=== PATIENT | male | born 1975 | race Hispanic/Latino ===

== ENCOUNTER → 2021-01-24 | Outpatient (CLI) | payer BC ==
[~2021-01-24] VITALS: Ht 172.7 cm; Wt 90.7 kg
[~2021-01-24] MED LIST: ACET1TAB25 PO; ASPI-1005 PO; ATOR40TA71 PO; CLOP75TA14 PO; LISI2.5T2 PO; METO-391 PO; REGADENOSON 0.4 MG/5 ML PF SYG IVP SCH
== END | disposition home or self-care (01) ==
LOC: SHCH 07:58
PROVIDERS: ATTEND Internal Medicine Cardiovascular Disease
DX: I25.10 Atherosclerotic heart disease of native coronary artery without angina pectoris (principal); R06.09 Other forms of dyspnea; R10.9 Unspecified abdominal pain; R07.89 Other chest pain; R68.2 Dry mouth, unspecified
CPT/HCPCS: 78452; 93017; 96374; A9500 ×2; J2785

== ENCOUNTER 2021-05-20 13:58 | Observation (INO) | payer BC ==
[~2021-05-20] VITALS: Ht 172.7 cm; Wt 83.5 kg
[~2021-05-20 13:58] MED LIST changes: +LISI2.5T13 PO; -LISI2.5T2 PO; -REGADENOSON 0.4 MG/5 ML PF SYG IVP SCH
[2021-05-20] MEDS ORDERED: NITROGLYCERIN 0.4 MG SL TAB SL ONE (14:01)
[2021-05-20 15:42] LABS: BASOPHILS % (AUTO) 0.6 % (0.0-5.0); EOSINOPHILS % (AUTO) 0.9 % (0.0-8.0); HEMATOCRIT 43.1 % (42-54); LYMPHOCYTES % (AUTO) 13.7 % (21.0-51.0); MEAN CORPUSCULAR HGB CONC 34.1 g/dL (32.0-36.0); MONOCYTES % (AUTO) 4.9 % (3.0-13.0); NEUTROPHILS % (AUTO) 79.4 % (40.0-77.0); PLATELET COUNT (AUTO) 213 K/uL (130-400); WHITE BLOOD COUNT (AUTO) 10.7 K/uL (4.8-10.8)
[2021-05-20 15:55] LABS: POTASSIUM 3.3 mmol/L (3.5-5.1)
[2021-05-20 16:06] LABS: ALBUMIN 4.4 g/dL (3.5-5.0); TOTAL PROTEIN, SERUM 7.7 g/dL (6.0-8.3)
[2021-05-20 16:37] LABS: APPEARANCE,URINE Clear (CLEAR); BILIRUBIN,URINE Negative (NEGATIVE); COLOR,URINE Yellow (YELLOW); GLUCOSE, URINE (UA) Negative (NEGATIVE); KETONES,URINE Negative (NEGATIVE); LEUKOCYTE ESTERASE ,URINE Negative (NEGATIVE); NITRATE,URINE Negative (NEGATIVE); OCCULT BLOOD,URINE Negative (NEGATIVE); PROTEIN,URINE Negative (NEGATIVE)
[2021-05-20] MEDS ORDERED: LACTULOSE 20 GM/30 ML UDCUP PO PRN (17:00)
[2021-05-20] MEDS ORDERED: CLOPIDOGREL 75MG TAB PO SCH (17:00)
[2021-05-20] MEDS ORDERED: KCL 20 MEQ ERTAB PO ONE ×3 (17:00→19:12)
[2021-05-20] MEDS ORDERED: ACETAMINOPHEN 325 MG TAB PO PRN (17:00)
[2021-05-20] MEDS ORDERED: ONDANSETRON 4MG INJ IV PRN (17:00)
[2021-05-20 17:41] LABS: HEMOGLOBIN A1C 5.8 % (4.0-6.0)
[2021-05-20 18:41] LABS: THYROID STIMULATING HORMONE 0.89 uIU/mL (0.36-3.74)
[2021-05-20] MEDS: NITROGLYCERIN 1GM OINT 1 INCH/1GM TD SCH (19:10)
[2021-05-20 19:25] LABS: AMPHET/METH SCREEN,URINE NEGATIVE (NEGATIVE); BARBITURATE SCREEN, URINE NEGATIVE (NEGATIVE); BENZODIAZEPINES SCREEN,URINE NEGATIVE (NEGATIVE); CANNABINOID SCREEN,URINE NEGATIVE (NEGATIVE); COCAINE SCREEN,URINE NEGATIVE (NEGATIVE); OPIATE SCREEN,URINE NEGATIVE (NEGATIVE); PHENCYCLIDINE SCREEN,URINE NEGATIVE (NEGATIVE)
[2021-05-20 20:40] VITALS: BP 132/82
[2021-05-20] MEDS ORDERED: LOSA25TA41 PO (21:32)
[2021-05-20] MEDS: METOPROLOL TARTRATE 25 MG TAB PO SCH (21:46)
[2021-05-20] MEDS: ATORVASTATIN 40 MG TABLET PO SCH (21:46)
[2021-05-20] MEDS: FAMOTIDINE 20MG TAB PO SCH (21:46)
[2021-05-20 23:25] VITALS: BP 107/59
[2021-05-21] MEDS: NITROGLYCERIN 1GM OINT 1 INCH/1GM TD SCH ×3 (02:17→17:29)
[2021-05-21 04:25] VITALS: BP 108/60
[2021-05-21] MEDS: METOPROLOL TARTRATE 25 MG TAB PO SCH ×2 (07:51→20:59)
[2021-05-21 07:52] VITALS: BP 99/64
[2021-05-21] MEDS: ACETAMINOPHEN 325 MG TAB PO PRN (08:39)
[2021-05-21] MEDS: ASPIRIN 81MG CHEW TAB PO SCH (08:40)
[2021-05-21] MEDS: CLOPIDOGREL 75MG TAB PO SCH (08:40)
[2021-05-21] MEDS: ENOXAPARIN SODIUM 40 MG/0.4 ML SYRINGE SQ SCH (08:40)
[2021-05-21] MEDS: FAMOTIDINE 20MG TAB PO SCH ×2 (08:40→20:59)
[2021-05-21 09:53] LABS: CREATININE 1.1 mg/dL (0.5-1.5); MAGNESIUM 2.2 mg/dL (1.80-2.40); POTASSIUM 4.5 mmol/L (3.5-5.1)
[2021-05-21 11:34] VITALS: BP 106/64
[2021-05-21 16:00] VITALS: BP 106/65
[2021-05-21 20:47] VITALS: BP 120/66
[2021-05-21] MEDS: ATORVASTATIN 40 MG TABLET PO SCH (20:59)
[2021-05-22] MEDS: ACETAMINOPHEN 325 MG TAB PO PRN (00:21)
[2021-05-22] MEDS: NITROGLYCERIN 1GM OINT 1 INCH/1GM TD SCH ×3 (00:25→14:24)
[2021-05-22 00:49] VITALS: BP 107/68
[2021-05-22 04:51] VITALS: BP 109/67
[2021-05-22 07:30] VITALS: BP 110/65
[2021-05-22] MEDS: ASPIRIN 81MG CHEW TAB PO SCH (09:02)
[2021-05-22] MEDS: FAMOTIDINE 20MG TAB PO SCH (09:03)
[2021-05-22] MEDS: METOPROLOL TARTRATE 25 MG TAB PO SCH (09:03)
[2021-05-22] MEDS: CLOPIDOGREL 75MG TAB PO SCH (09:03)
[2021-05-22] MEDS: ENOXAPARIN SODIUM 40 MG/0.4 ML SYRINGE SQ SCH (09:04)
[2021-05-22 11:18] VITALS: BP 117/72
[2021-05-22 15:40] VITALS: BP 116/74
== END 2021-05-22 18:30 | disposition home or self-care (01) ==
LOC: EDH 13:58 → EDHIP 16:44 → 4CH 20:36
PROVIDERS: ADMIT Internal Medicine; ATTEND Internal Medicine
DX: R07.89 Other chest pain (principal); E87.6 Hypokalemia; I25.10 Atherosclerotic heart disease of native coronary artery without angina pectoris; I21.19 ST elevation (STEMI) myocardial infarction involving other coronary artery of inferior wall; I50.42 Chronic combined systolic (congestive) and diastolic (congestive) heart failure; E78.5 Hyperlipidemia, unspecified; H53.9 Unspecified visual disturbance; R00.2 Palpitations; F41.9 Anxiety disorder, unspecified; I49.3 Ventricular premature depolarization; I25.2 Old myocardial infarction; I49.01 Ventricular fibrillation; M62.82 Rhabdomyolysis; Z79.82 Long term (current) use of aspirin; Z79.899 Other long term (current) drug therapy; Z79.02 Long term (current) use of antithrombotics/antiplatelets; Z85.72 Personal history of non-Hodgkin lymphomas; Z95.5 Presence of coronary angioplasty implant and graft
CPT/HCPCS: 36415 ×2; 70450; 71045; 80048; 80053; 80305; 81003; 82550 ×4; 82948; 83036; 83735 ×2; 83874 ×4; 83880; 84443; 84484 ×4; 85025; 85378; 93005 ×4; 93306; 93356; 93880; 96372 ×2; 99283; G0378 ×47; J1650 ×2

== ENCOUNTER 2022-05-18 09:20 | Emergency (ER) | payer BC ==
[~2022-05-18] VITALS: Ht 172.7 cm; Wt 90.7 kg
[~2022-05-18 09:20] MED LIST changes: +ACET-2079 PO; -ACET1TAB25 PO; -LISI2.5T13 PO; +LOSA25TA41 PO
[2022-05-18] MEDS ORDERED: ASPIRIN 325MG TAB PO ONE (09:30)
[2022-05-18 09:34] LABS: BASOPHILS % (AUTO) 0.6 % (0.0-5.0); HEMATOCRIT 43.2 % (42-54); LYMPHOCYTES % (AUTO) 41.8 % (21.0-51.0); MEAN CORPUSCULAR HEMOGLOBIN 29.9 pg (27.0-33.0); MEAN CORPUSCULAR HGB CONC 34.5 g/dL (32.0-36.0); MEAN CORPUSCULAR VOLUME 86.6 fL (79-99); MONOCYTES % (AUTO) 7.1 % (3.0-13.0); NEUTROPHILS % (AUTO) 47.2 % (40.0-77.0); PLATELET COUNT (AUTO) 207 K/uL (130-400); RED BLOOD CELL COUNT(AUTO) 4.99 MIL/uL (4.50-6.20); RED CELL DISTRIBUTION WIDTH 11.8 % (11.0-15.5); WHITE BLOOD COUNT (AUTO) 8.7 K/uL (4.8-10.8)
[2022-05-18 10:02] LABS: ALBUMIN 4.3 g/dL (3.5-5.0); TOTAL PROTEIN, SERUM 7.7 g/dL (6.0-8.3)
[2022-05-18 10:24] LABS: B-TYPE NATRIURETIC PEPTIDE 15 pg/mL (0-100)
[2022-05-18] MEDS ORDERED: KCL 20 MEQ ERTAB PO ONE (11:00)
[2022-05-18 12:05] LABS: APPEARANCE,URINE CLEAR (CLEAR); BILIRUBIN,URINE NEGATIVE (NEGATIVE); COLOR,URINE YELLOW (YELLOW); GLUCOSE, URINE (UA) NEGATIVE (NEGATIVE); KETONES,URINE NEGATIVE (NEGATIVE); LEUKOCYTE ESTERASE ,URINE NEGATIVE Leu/uL (NEGATIVE); NITRATE,URINE NEGATIVE (NEGATIVE); OCCULT BLOOD,URINE TRACE-INTACT (NEGATIVE); PROTEIN,URINE NEGATIVE (NEGATIVE); UROBILINOGEN,URINE 0.2 mg/dL (0.2-1.0)
[2022-05-18 12:36] VITALS: BP 133/69
[2022-05-18 12:43] LABS: BACTERIA,URINE Rare /HPF (None Seen); RBC,URINE 0-1 /HPF (0-1); SQUAMOUS EPITHELIAL CELL,UR Rare /HPF (0-2); WBC,URINE 0-1 /HPF (0-1)
== END 2022-05-18 12:32 | disposition home or self-care (01) ==
LOC: EDH 09:20
DX: E87.6 Hypokalemia (principal); R07.89 Other chest pain; M94.0 Chondrocostal junction syndrome [Tietze]; I25.2 Old myocardial infarction; I25.10 Atherosclerotic heart disease of native coronary artery without angina pectoris; Z79.899 Other long term (current) drug therapy; Z79.82 Long term (current) use of aspirin; Z98.890 Other specified postprocedural states
CPT/HCPCS: 36415; 71045; 80053; 81001; 83880; 84484; 85025; 85378; 93005

== ENCOUNTER → 2023-05-23 | Outpatient (CLI) | payer BC ==
[~2023-05-23] MED LIST changes: +CLOP-31 PO; -CLOP75TA14 PO
[2023-05-23 12:39] LABS: POTASSIUM 4.1 mmol/L (3.5-5.1)
== END | disposition home or self-care (01) ==
LOC: LAB 08:08
PROVIDERS: ATTEND Internal Medicine Cardiovascular Disease
DX: I11.9 Hypertensive heart disease without heart failure (principal); E78.5 Hyperlipidemia, unspecified
CPT/HCPCS: 36415; 80048; 80061

== ENCOUNTER → 2023-06-25 | Outpatient (CLI) | payer BC ==
[~2023-06-25] MED LIST changes: +REGADENOSON 0.4 MG/5 ML PF SYG IVP ONE
== END | disposition home or self-care (01) ==
LOC: SHCH 08:15
PROVIDERS: ATTEND Internal Medicine Cardiovascular Disease
DX: I25.10 Atherosclerotic heart disease of native coronary artery without angina pectoris (principal)
CPT/HCPCS: 78452; 96374; 93017; J2785; A9500 ×2

== ENCOUNTER → 2024-06-15 | Outpatient (CLI) | payer BC ==
[~2024-06-15] MED LIST changes: -ACET-2079 PO; +AEC81 PO; -ASPI-1005 PO; +ATOR40TA69 PO; -ATOR40TA71 PO; +DILT180C47 PO; +FAMO20TA8 PO; +Isosorbide Mono 30MG Sr Tab PO; -METO-391 PO; -REGADENOSON 0.4 MG/5 ML PF SYG IVP ONE
[2024-06-15] MEDS: REGADENOSON 0.4 MG/5 ML PF SYG IVP ONE (16:04)
--- NOTE | 2024-06-16 08:21 | HMCSR ---
APPROVED REPORT Height: 5 ft 8in Weight: 201 lbs TEST INDICATIONS CAD The imaging protocol used to acquire images was Rest Tc-99m/stress Tc-99m 1 day Consent: The procedure was explained and understood by the patient. Informerd consent was witnessed Randall GUDINO RN First, low dose rest was performed then high dose stress. RESTING DATA: The resting ekg shows: NSR Rest SPECT myocardial perfusion imaging was performed in supine position 124 minutes following the in travenous injection of 10.9 mCi of Tc-99 Sestamibi. Time of rest injection: 09:20: Date: 06/15/2024 Time of rest imagin:24: Date: 06/15/2024 PHARMACOLOGIC STRESS: Pharmacologic stress test was performed by injecting regadenoson 0.4 mg IV push followed by the intra venous injection of 31 mCi of Tc-99 Sestamibi. Time of stress injection: 11:45: Date: 06/15/2024 Time of stress imagin:37: Date: 06/15/2024 Heart Rate at time of stress injection: 76 bpm. Gated Stress SPECT was performed 112 minutes after stress injection. The images were gated to evaluate regional wall motion and calculate left ventricular ejection fracti on. STRESS DETAILS Reason for Termination: Infusion complete Stress Symptoms: Dyspnea, Chest tightness Max HR Achieved: 112 bpm % of APMHR Achieved: 66 Max Blood Pressure: 161/77 mmHg Stress ECG: NSR Conclusion Fixed anterior and inferior defects Lateral wall ischemia LV ejection fraction 61% Normal LV wall motion Normal LV size at rest and stress No increased lung uptake No infarct on EKG
== END | disposition home or self-care (01) ==
LOC: SHCH 08:46
PROVIDERS: ATTEND Internal Medicine Cardiovascular Disease
DX: I99.8 Other disorder of circulatory system (principal); I25.10 Atherosclerotic heart disease of native coronary artery without angina pectoris
CPT/HCPCS: 78452; 93017; J2785; A9500 ×2